=== PATIENT | female | born 1985 | race Caucasian/White ===

== ENCOUNTER 2016-09-17 09:52 | Emergency (ER) | payer MEDICARE, OTHER ==
[~2016-09-17] VITALS: Ht 160 cm; Wt 78.5 kg
[~2016-09-17 09:52] MED LIST: ALPRAZOLAM0.5 M1 PO; CEPHALEXIN250 MG/5 M PO; FLUOXETINE20 MG/5 ML PO; L-METHYLFOLATE15 M1 PO; SULFAMETHOXAZO473 M1 PO
== END 2016-09-17 11:46 | disposition home or self-care (01) ==
LOC: ED 09:52
DX: R10.2 Pelvic and perineal pain (principal); F41.9 Anxiety disorder, unspecified; Z90.49 Acquired absence of other specified parts of digestive tract; Z79.899 Other long term (current) drug therapy
CPT/HCPCS: 80053; 81001; 84703; 85025; 96360; 99283; J7040

== ENCOUNTER 2017-01-07 08:23 | Emergency (ER) | payer MEDICARE, OTHER ==
[~2017-01-07] VITALS: Ht 160 cm; Wt 72.1 kg
== END 2017-01-07 08:56 | disposition home or self-care (01) ==
LOC: ED 08:23
DX: N39.0 Urinary tract infection, site not specified (principal); Z00.8 Encounter for other general examination

== ENCOUNTER 2020-01-31 07:41 | Day surgery (SDC) | payer BC, MEDICARE ==
[~2020-01-31] VITALS: Ht 160 cm; Wt 59.1 kg
[~2020-01-31 07:41] MED LIST changes: +CRESTOR10 MG PO
[2020-01-31] MEDS ORDERED: MELATONIN 5 MG1 EACH PO (08:24)
--- NOTE | 2020-01-31 17:51 | OR ---
[facility] [address] [place], [place] [address] Signed DATE OF OPERATION: 01/31/2020 SURGEON: Alphonso Torres DPM PREOPERATIVE DIAGNOSIS: Hallux valgus with bunion deformity, right foot. POSTOPERATIVE DIAGNOSIS: Hallux valgus with bunion deformity, right foot. FEEDLOT MANAGER SURGEON: Nicole Ramires DPM ANESTHESIA: IV general with local block, right foot. ENVIRONMENTAL HEALTH AIDE: Alphonso Montgomery. SPECIMEN TO PATHOLOGY: None. PROCEDURE PERFORMED: Bunionectomy with first metatarsal osteotomy, right foot. DESCRIPTION OF PROCEDURE: The patient was brought to the operating room and placed on the table in the supine position. Anesthesia Department administered IV sedation, after which a local block was given to the right foot using a total of 10 mL 1:1 mixture, 2% lidocaine plain and 0.5% ropivacaine plain. The right leg and foot were then prepped and draped in the usual sterile manner and an Esmarch was used for hemostasis. Attention was initially directed to the dorsal/medial aspect of the right first metatarsophalangeal joint, where a linear longitudinal incision was made approximately 1 cm medial to the extensor hallucis longus tendon. The incision was 6-8 cm in length, initially full-thickness through the dermis, then deepened through subcutaneous tissue using careful dissection and cautery as necessary for hemostasis. Once the level of deep fascia and joint capsule, a linear incision was made to open the joint reflecting soft tissues medially to expose the medial aspect of the first metatarsal head and the bony prominence to the site. A small amount of bone was then resected from the medial Electronically Signed By: ALPHONSO TORRES DPM 01/31/20 1751 PATIENT NAME: DOMITILA PALAFOX OPERATIVE REPORT DATE OF : 85 REPORT #: [id number] PHYSICIAN: ALPHONSO TORRES DPM PCP: DAVIN BENTON MD REPORT IS CONFIDENTIAL AND NOT TO BE RELEASED WITHOUT AUTHORIZATION [facility] [address] [place], [place] [address] Signed first metatarsal head, removing 1-2 mm of bone. At this time, attention was directed to the first intermetatarsal space, where a lateral release was performed. With the lateral release performed, this appeared to provide adequate motion to correct the hallux position. At this time, attention was redirected to the medial first metatarsal head, where a long dorsal arm chevron type osteotomy was made through the first metatarsal head from medial to lateral. The metatarsal head was then laterally transposed about 6 mm, then impacted on the metatarsal and secured temporarily with a K-wire. The position and alignment then checked intraoperatively with the C-arm. Once the position was confirmed, then a screw was placed from dorsal to plantar through the first metatarsal crossing the osteotomy site. This was a 3.0 x 18 mm cannulated screw. The position of the screw and the alignment again checked with intraoperative C-arm images. Then, the shelf of bone remaining medially was resected using power instrumentation and the bone smoothed of any rough areas to the osteotomy site with power instrumentation. The surgical site was then irrigated with copious amounts of normal saline. Deep soft tissues then closed using 3-0 Vicryl. Subcutaneous tissue closed using 4-0 Vicryl and skin closed using skin cadence. Dressings were then applied consisting of Adaptic, Betadine-soaked gauze, dry gauze, Kerlix fluffs, Flexicon, and Coban for mild compression. Prior to placement of the dressings, postoperative injection was given using 9 mL, 9:1 mixture of 0.5% ropivacaine and dexamethasone phosphate 4 mg/mL. The dressings were used to splint the position to the hallux to maintain the correction. INTRAOPERATIVE COMPLICATIONS: None. ESTIMATED BLOOD LOSS: Less than 5 mL. Note: Patient tolerated the procedure and anesthesia well, and left the OR with vital signs stable and vascular status intact to e right foot as evidenced by hyperemia with removal of the esmark. Alphonso Torres DPM DFB/MODL /[id number] Electronically Signed By: ALPHONSO TORRES DPM 01/31/20 1751 PATIENT NAME: DOMITILA PALAFOX OPERATIVE REPORT DATE OF : 85 REPORT #: [id number] PHYSICIAN: ALPHONSO TORRES DPM PCP: DAVIN BENTON MD REPORT IS CONFIDENTIAL AND NOT TO BE RELEASED WITHOUT AUTHORIZATION [facility] [address] [place] [address] [place], [place] [address] Signed Copies: ~ Electronically Signed By: ALPHONSO TORRES DPM 01/31/20 1751 PATIENT NAME: DOMITILA PALAFOX OPERATIVE REPORT DATE OF : 85 REPORT #: [id number] PHYSICIAN: ALPHONSO TORRES DPM PCP: DAVIN BENTON MD REPORT IS CONFIDENTIAL AND NOT TO BE RELEASED WITHOUT AUTHORIZATION
== END 2020-01-31 11:35 | disposition home or self-care (01) ==
LOC: OPS 07:41 → DS 07:41 → OPS 08:30
PROVIDERS: ATTEND Podiatrist Foot Surgery
PROC: 0QSN04Z Reposition Right Metatarsal with Internal Fixation Device, Open Approach (ICD-10-PCS; principal; 2020-01-31 08:30)
DX: M20.11 Hallux valgus (acquired), right foot (principal); M21.611 Bunion of right foot; M21.6X1 Other acquired deformities of right foot; Z79.899 Other long term (current) drug therapy
CPT/HCPCS: 01480; 73620; 73630; C1713; J0690; J1100; J1885; J2001; J2250; J2405; J2704; J2795; J3010; J7121

== ENCOUNTER 2020-05-16 20:17 | Emergency (ER) | payer BC, MEDICARE ==
[~2020-05-16] VITALS: Ht 160 cm; Wt 59.0 kg
[~2020-05-16 20:17] MED LIST changes: +MELATONIN 5 MG1 EACH PO
--- OUTSIDE RECORDS SUMMARY | 2020-05-16 20:20 | XMS ---
PreManage Notification: DOMITILA PALAFOX Security Journalism Instructor Events No recent Security Events currently on file [facility] There are no care providers on record at this time. Amol has no Care Guidelines for this patient. Lizbeth VISIT COUNT (12 MO.) 1 DIONNE Anderson TOTAL 1 NOTE: Visits indicate total known visits. ED/C VISIT TRACKING (12 MO.) 05/16/2020 20:18 DIONNE Croft OR TYPE: Emergency COMPLAINT: - FEVER INPATIENT VISIT TRACKING (12 MO.) No inpatient visits to display in this time frame [email or web address]
== END 2020-05-16 22:33 | disposition home or self-care (01) ==
LOC: ED 20:17
DX: A41.9 Sepsis, unspecified organism (principal); N61.0 Mastitis without abscess; Z79.899 Other long term (current) drug therapy
CPT/HCPCS: 80053; 83605; 85025; 96374; 99284-25; J0690

== ENCOUNTER 2023-05-10 09:05 | Emergency (ER) | payer BC, MEDICARE ==
[~2023-05-10] VITALS: Ht 160 cm; Wt 57.4 kg
--- OUTSIDE RECORDS SUMMARY | 2023-05-10 09:08 | XMS ---
PreManage Notification: DOMITILA PALAFOX Security Assistant Store Leader Events No recent Security Events currently on file [facility] There are no care providers on record at this time. Amol has no Care Guidelines for this patient. Lizbeth VISIT COUNT (12 MO.) 1 DIONNE Anderson TOTAL 1 NOTE: Visits indicate total known visits. ED/C VISIT TRACKING (12 MO.) 05/10/2023 09:05 DIONNE Croft OR TYPE: Emergency COMPLAINT: - R SIDE CHEST/BREAST PAIN INPATIENT VISIT TRACKING (12 MO.) No inpatient visits to display in this time frame [email or web address]
[2023-05-10] MEDS ORDERED: LEVOTHYROXINE75 MCG PO (09:22)
[2023-05-10] MEDS ORDERED: CLINDAMYCI75 MG/5 M1 PO (09:22)
[2023-05-10] MEDS ORDERED: LIOTHYRONINE S25 MCG PO (09:22)
[2023-05-10] MEDS ORDERED: HYDROmorphone HCL 1 MG/ML SYR IV PRN (09:45)
[2023-05-10] MEDS ORDERED: KETOROLAC TROMETHAMINE 15 MG/ML VIAL IV ONE (09:45)
[2023-05-10 10:06] LABS: BASOPHILS 0.5 % (0-2); EOSINOPHILS 0.8 % (0-6); HEMATOCRIT 41.9 % (35.0-50.0); HEMOGLOBIN 14.3 g/dL (12.0-18.0); LYMPHOCYTES 31.9 % (24-44); MCH 31.1 (27-36); MCHC 34.1 g/dl (30-36); MCV 91.3 fl (81-99); MONOCYTES 7.4 % (0-12); NEUTROPHILS 59.4 % (39-80); PLATELET COUNT 322 K/uL (140-440); RBC 4.59 M/ul (4.3-5.7); RDW 13.4 (10.5-15.0)
[2023-05-10 10:20] LABS: ALBUMIN 3.7 g/dL (3.4-5.0); ALBUMIN/GLOBULIN RATIO 1.03 (1.1-2.4); ANION GAP 13.3 (7-21); BILIRUBIN, TOTAL 0.5 ng/dL (0.2-1.0); BUN/CREATININE RATIO 26.98 (6.0-28.6); CALCIUM 9.3 mg/dL (8.5-10.1); CREATININE, SERUM 0.63 mg/dL (0.55-1.02); POTASSIUM 4.3 mmol/L (3.5-5.1); PROTEIN, TOTAL 7.3 g/dL (6.4-8.2)
[2023-05-10] MEDS ORDERED: HYDROCODONE-ACE15 M3 PO (11:23)
[2023-05-10] MEDS ORDERED: ACETA/HYDROCODONE 325/7.5 15 ML BTL PO ONE (11:30)
[2023-05-10 11:35] VITALS: BP 119/66
== END 2023-05-10 11:37 | disposition home or self-care (01) ==
LOC: ED 09:05
PROVIDERS: Emergency Medicine
DX: N64.4 Mastodynia (principal); Z79.899 Other long term (current) drug therapy; Z79.890 Hormone replacement therapy
CPT/HCPCS: 36415; 76642; 80053; 85025; J1885

== ENCOUNTER 2024-06-13 09:21 | Inpatient (IN) | payer MEDICARE, OTHER ==
[~2024-06-13] VITALS: Ht 162.6 cm; Wt 80.3 kg
[~2024-06-13 09:21] MED LIST changes: +CLINDAMYCI75 MG/5 M1 PO; +HYDROCODONE-ACE15 M3 PO; +LEVOTHYROXINE75 MCG PO; +LIOTHYRONINE S25 MCG PO
[2024-06-14 05:42] VITALS: BP 147/86
[2024-06-14 05:47] LABS: HEMATOCRIT 33.5 % (35.0-50.0); MCH 27.2 (27-36); MCHC 32.9 g/dl (30-36); MCV 82.7 fl (81-99); RBC 4.06 M/ul (4.3-5.7); RDW 15.9 (10.5-15.0)
[2024-06-14 06:15] LABS: ABO B; RH POSITIVE
[2024-06-14 06:16] LABS: ANTIBODY SCREEN NEGATIVE
[2024-06-14 06:38] LABS: AMPHETAMINES, URINE NEGATIVE (NEGATIVE); BARBITURATES, URINE NEGATIVE (NEGATIVE); BENZODIAZEPINE, URINE NEGATIVE (NEGATIVE); BUPRENORPHINE, URINE NEGATIVE (NEGATIVE); CANNABINOID, URINE NEGATIVE (NEGATIVE); COCAINE, URINE NEGATIVE (NEGATIVE); ECSTASY, URINE NEGATIVE (NEGATIVE); FENTANYL, URINE NEGATIVE (NEGATIVE); METHADONE, URINE NEGATIVE (NEGATIVE); OPIATES, URINE NEGATIVE (NEGATIVE); OXYCODONE, URINE NEGATIVE (NEGATIVE); PHENCYCLIDINE, URINE NEGATIVE (NEGATIVE)
[2024-06-14] MEDS ORDERED: LACTATED RINGER'S 1,000 ML IV SCH ×2 (07:00→11:39)
[2024-06-14] MEDS ORDERED: LACTATED RINGER'S 2,000 ML IV PRN (07:00)
[2024-06-14] MEDS ORDERED: CEFAZOLIN SODIUM 2 GM/20 ML SYR IV SCH (07:00)
[2024-06-14] MEDS ORDERED: SOD+POT BICARB/CITRIC ACID 2 EA TABLET.EFF PO SCH (07:00)
[2024-06-14] MEDS ORDERED: BUPIVACAINE 0.75% IN DEXTROSE 2 ML AMP ONE (07:03)
[2024-06-14] MEDS ORDERED: fentaNYL citrate 100 MCG/2 ML VIAL ONE (07:03)
[2024-06-14] MEDS ORDERED: LIDOCAINE HCL 2% 5 ML SDV ONE (07:03)
[2024-06-14] MEDS ORDERED: MORPHINE SULFATE 1 MG/ML VIAL ONE (07:03)
[2024-06-14] MEDS ORDERED: OXYTOCIN 10 UNITS/ML VIAL ONE (07:14)
[2024-06-14] MEDS ORDERED: ondansetron HCL 4 MG/2 ML VIAL ONE (07:16)
[2024-06-14] MEDS ORDERED: dexmedeTOMIDine HCl 200 MCG/2 ML VIAL ONE (08:08)
[2024-06-14] MEDS ORDERED: SODIUM CHLORIDE 0.9% 20 ML IV ONE (08:08)
[2024-06-14] MEDS ORDERED: DEXAMETHASONE SOD PHOS 4 MG/ML VIAL ONE (08:08)
[2024-06-14] MEDS ORDERED: Ropivacaine HCl 0.5% 30 ML VIAL ONE (08:08)
[2024-06-14] MEDS ORDERED: PHENYLEPHRINE HCL 10 MG/ML VIAL ONE (08:41)
[2024-06-14] MEDS ORDERED: diphenhydrAMINE HCL 25 MG CAP PO PRN (08:45)
[2024-06-14] MEDS ORDERED: diphenhydrAMINE HCL 50 MG/ML VIAL IV PRN (08:45)
[2024-06-14] MEDS ORDERED: KETOROLAC TROMETHAMINE 30 MG/ML VIAL IV PRN ×2 (08:45)
[2024-06-14] MEDS ORDERED: fentaNYL citrate 50 MCG/ML SDV IV PRN (08:45)
[2024-06-14] MEDS ORDERED: ondansetron HCL 4 MG/2 ML VIAL IV PRN ×3 (08:45→11:45)
[2024-06-14] MEDS ORDERED: LORazepam 2 MG/ML VIAL IV PRN (08:45)
[2024-06-14] MEDS ORDERED: HYDROmorphone HCL 1 MG/ML SYR IV PRN (08:45)
[2024-06-14] MEDS ORDERED: NALOXONE HCL 0.4 MG SYR IV PRN ×2 (08:45)
[2024-06-14] MEDS ORDERED: IBLOOD GLUCOSE TEST STRIP 1 EA TEST VI PRN (08:45)
[2024-06-14 10:02] VITALS: BP 114/65
--- NOTE | 2024-06-14 10:21 | NUR ---
06/14/24 1021 [place] 0911 PT ARRIVED IN PACU WIDE AWAKE WITH MULTIPLE FAMILY MEMBERS AT BEDSIDE. 0915 [facility] NURSE HELPING MOM BREASTFEED BABY. 0918 DR AT BEDSIDE. 0933 PT BABY WITH [facility] RN'S HELP. MULTIPLE FAMILY MEMBERS AT BEDSIDE HELPING. 0938 REPORT GIVEN TO RN. BED PLUGGED IN.
[2024-06-14] MEDS ORDERED: bisacodyL 10 MG SUPP PR PRN (11:45)
[2024-06-14] MEDS ORDERED: OXYCODONE HCL 5 MG TAB PO PRN (11:45)
[2024-06-14] MEDS ORDERED: OXYTOCIN/0.9 % SODIUM CHLORIDE 500 ML IV SCH (11:45)
[2024-06-14] MEDS ORDERED: IBUPROFEN 600 MG TAB PO SCH (14:00)
[2024-06-14] MEDS ORDERED: SIMETHICONE 80 MG CHEW PO SCH (16:00)
[2024-06-14] MEDS ORDERED: ACETAMINOPHEN 500 MG TAB PO PRN (17:00)
[2024-06-14] MEDS ORDERED: ACETAMINOPHEN 500 MG TAB PO SCH (17:00)
[2024-06-14] MEDS ORDERED: ALPRAZolam 0.5 MG TAB PO ONE (18:30)
[2024-06-14] MEDS ORDERED: SENNOSIDES/DOCUSATE 1 EA TAB PO SCH (21:00)
[2024-06-15] MEDS ORDERED: FLUOXETINE HCL 20 MG/5 ML PO SCH (08:30)
--- NOTE | 2024-06-15 12:43 | OR ---
[address] [address] Signed DATE OF OPERATION: 06/14/2024 SURGEON: Deandre Fragoso MD PREOPERATIVE DIAGNOSES: 1. Intrauterine at 39-1/2 weeks. 2. Breech presentation, declines attempt at external cephalic version. POSTOPERATIVE DIAGNOSES: 1. Intrauterine at 39-1/2 weeks. 2. Breech presentation, declines attempt at external cephalic version. PROCEDURE: Primary low transverse repeat section. FINDINGS: Normal uterus, ovaries and tubes, light meconium fluid, vigorous female infant with Apgars of 9 and 9, weight yet to be determined. ANESTHESIA: Spinal. DECORATOR MANNEQUIN: None. ESTIMATED BLOOD LOSS: 500 mL. IV FLUIDS: 1500 mL of crystalloid. URINE OUTPUT: 50 mL clear urine. DRAINS: Peterson to gravity. SPECIMENS: None. Electronically Signed By: DEANDRE FRAGOSO MD 06/15/24 1243 PATIENT NAME: DOMITILA PALAFOX OPERATIVE REPORT DATE OF : 85 REPORT #: [id number] PHYSICIAN: DEANDRE FRAGOSO MD PCP: DAVIN BENTON MD REPORT IS CONFIDENTIAL AND NOT TO BE RELEASED WITHOUT AUTHORIZATION [facility] [address] [place] [id number] Signed COMPLICATIONS: None apparent. COUNTS: Correct x2. TECHNIQUE IN DETAIL: With informed consent, the patient was taken to the operating room where spinal anesthetic was placed. Lower extremities were placed in SCD pneumatic compression devices per protocol. She was also given 2 g of Ancef IV per protocol. She was prepped and draped in sterile fashion. Time out was performed per protocol. Under adequate spinal analgesia, an approximately 8-inch Pfannenstiel skin incision was made and sharp dissection was carried down to the layer of the rectus fascia, which was nicked in the midline. This ramya in the fascia was enlarged bilaterally using combination of sharp and blunt dissection. The rectus muscles were then taken down from the fascia both superiorly and interiorly using a combination of sharp and blunt dissection as well as the electrocautery device. The rectus muscles were in the midline at the most superior aspect and the separation was then carried further inferiorly using sharp and blunt dissection, the peritoneum was entered bluntly and the peritoneal opening was enlarged with blunt dissection and a bladder blade was then placed. Using a scalpel, low transverse uterine incision was made. Sharp dissection was carried down to the layer of the superficial myometrium, the remains of which was punctured with the surgeon's finger. The hysterectomy site was enlarged with bandage scissors as well as blunt dissection in a superior to inferior direction. The surgeon's hand was placed into the lower uterine segment. The sacrum and pelvis was palpated and the anterior superior iliac spines on either side of the fetus were grasped and with gentle traction and some fundal pressure, the baby was delivered to the level of the shoulders. Each arm was then delivered individually and the head was easily delivered in a flexed position. With the fetus delivered, the cord was clamped x2 and cut and the baby was handed to the awaiting transition team. The placenta delivered intact with gentle traction and fundal massage. Good uterine tone was achieved with fundal massage and intravenous oxytocin. The uterus was externalized and curetted with moist laparotomy sponges to remove all clot and product of conception. Uterine incision was closed with 0 Monocryl in a running locked fashion. A second imbricating layer of 0 Monocryl was placed in a running fashion. Good hemostasis was noted at the hysterectomy site. The posterior cul-de-sac was cleared of all clots and blood. The adnexa were examined at this time. The uterus was returned to the pelvis gently. The left and right paracolic gutters were then examined and cleared of all clot and blood. The hysterectomy site was examined at the final time and found to be hemostatic. Electronically Signed By: DEANDRE FRAGOSO MD 06/15/24 1243 PATIENT NAME: DOMITILA PALAFOX OPERATIVE REPORT DATE OF : 85 REPORT #: [id number] PHYSICIAN: DEANDRE FRAGOSO MD PCP: DAVIN BENTON MD REPORT IS CONFIDENTIAL AND NOT TO BE RELEASED WITHOUT AUTHORIZATION [facility] [address] [place] [id number] Signed The rectus muscles and peritoneum were reapproximated using 2-0 chromic in a running fashion. The rectus muscle bellies were inspected and found to be hemostatic. The rectus fascia was closed with 0 Vicryl in a running fashion. The superficial incision was irrigated and rendered hemostatic with the electrocautery device. The subcutaneous tissue was reapproximated with 2-0 chromic in a running fashion. The skin was closed with 4-0 Quill suture. Steri-Strips and bandage were placed. The uterus was expressed of all clots. DISPOSITION: The patient and baby were taken to the recovery room in stable condition. MD DAMION Roque/MODL /[id number] Copies: ~ Electronically Signed By: DEANDRE FRAGOSO MD 06/15/24 1243 PATIENT NAME: DOMITILA PALAFOX OPERATIVE REPORT DATE OF : 85 REPORT #: [id number] PHYSICIAN: DEANDRE FRAGOSO MD PCP: DAVIN BENTON MD REPORT IS CONFIDENTIAL AND NOT TO BE RELEASED WITHOUT AUTHORIZATION
[2024-06-15 13:10] LABS: HEMATOCRIT 26.3 % (35.0-50.0); HEMOGLOBIN 8.7 g/dL (12.0-18.0); MCH 27.8 (27-36); MCHC 33.3 g/dl (30-36); MCV 83.5 fl (81-99); RBC 3.15 M/ul (4.3-5.7); RDW 15.8 (10.5-15.0)
[2024-06-15 17:36] LABS: HEMATOCRIT 25.1 % (35.0-50.0); HEMOGLOBIN 8.4 g/dL (12.0-18.0); MCH 27.6 (27-36); MCHC 33.5 g/dl (30-36); MCV 82.6 fl (81-99); RBC 3.03 M/ul (4.3-5.7)
[2024-06-15] MEDS ORDERED: ALPRAZolam 0.5 MG TAB PO PRN (18:30)
[2024-06-16] MEDS ORDERED: FLUOXETINE HCL 20 MG/5 ML PO SCH (09:00)
== END 2024-06-17 13:52 | disposition home or self-care (01) | DRG 788 ==
LOC: FBC 06-14 04:50
PROVIDERS: ADMIT Obstetrics & Gynecology; ATTEND Obstetrics & Gynecology
PROC: 10D00Z1 Extraction of Products of Conception, Low, Open Approach (ICD-10-PCS; principal; 2024-06-15)
PROC: 10907ZC Drainage of Amniotic Fluid, Therapeutic from Products of Conception, Via Natural or Artificial Opening (ICD-10-PCS; principal; 2024-06-15)
DX: O64.1XX0 Obstructed labor due to breech presentation, not applicable or unspecified (principal); Z3A.39 39 weeks gestation of pregnancy; Z37.0 Single live birth; O77.0 Labor and delivery complicated by meconium in amniotic fluid; O99.344 Other mental disorders complicating childbirth; F41.0 Panic disorder [episodic paroxysmal anxiety]; O99.284 Endocrine, nutritional and metabolic diseases complicating childbirth; E03.9 Hypothyroidism, unspecified; K58.9 Irritable bowel syndrome, unspecified; O99.62 Diseases of the digestive system complicating childbirth; Z87.440 Personal history of urinary (tract) infections; Z90.89 Acquired absence of other organs; E06.3 Autoimmune thyroiditis
CPT/HCPCS: 01961; 36415; 80307; 85027; 86850; 86900; 86901; A9270; J0690; J1100; J2003; J2274; J2371; J2405; J2590; J2795; J3010; J7121